=== PATIENT | female | born 1980 | race Caucasian/White ===

== ENCOUNTER 2024-12-23 14:51 | Outpatient (CLI) | payer OTHER, SELFPAY ==
--- NOTE | 2024-12-23 12:52 | MM_ITS ---
WS: [id number] Bilateral screening 3D tomosynthesis digital mammogram, 12/23/2024 12:53 PM Clinical Data: SCREENING Comparison: 10/03/2022 Findings: No spiculated masses or clustered calcifications are seen. There are no secondary signs of carcinoma. MM/MM scr BI tomosynthesis [id number] Impression: Negative bilateral mammogram unchanged. Recommend annual screening mammograms. BIRADS: 1 - Negative FOLLOW UP: 1 Year Follow-up DENSITY: The breasts are heterogeneously dense, which may obscure small masses. The CAD price checker was used
== END 2024-12-23 14:52 | disposition home or self-care (01) ==
LOC: MOBLMAM 14:51
PROVIDERS: PCP Nurse Practitioner Family; Visit Provider Dermatology
DX: Z12.31 Encounter for screening mammogram for malignant neoplasm of breast (principal); R92.333 Mammographic heterogeneous density, bilateral breasts
CPT/HCPCS: 77063; 77067